=== PATIENT | female | born 1945 | race African-American/Black ===

== ENCOUNTER → 2016-10-28 07:52 | Outpatient (CLI) | payer MEDICARE, OTHER ==
[2014-10-01 13:58] VITALS: BMI 25.2
[~2016-10-28 07:52] MED LIST: BAYER CHEWABLE81 MG PO; ELMIRON100 MG PO; HYDROCODON-ACE1 EAC7 PO; IMDUR30 MG PO; MAG-OX 400 MG400 MG PO; OXYBUTYNIN CHLOR5 MG PO; XARELTO15 MG PO
[2016-10-28 09:33] LABS: BASOPHILS 0.6 % (0-2); EOSINOPHILS 3.6 % (0-7); HEMATOCRIT 35.8 % (36.0-48.0); HEMOGLOBIN 11.8 g/dL (12-16); IMMATURE GRANULOCYTES 0.6 % (0-5); MCH 33.9 pg (26.0-34.0); MCV 102.9 fL (80.0-100.0); MONOCYTES 8.3 % (2-11); NEUTROPHILS 57.9 % (40-80); PLATELET COUNT 152 10x3/uL (130-400); RBC 3.48 10x6/uL (4.00-5.40); RDW 13.7 % (11.5-14.5)
[2016-10-28 09:51] LABS: ALBUMIN 3.4 g/dL (3.4-5.0); ANION GAP 12.8 mmol/L (8-16); BILIRUBIN - TOTAL 0.23 mg/dL (0.2-1.3); CALCIUM 8.6 mg/dL (8.5-10.1); CARBON DIOXIDE 21.7 mmol/L (21.0-32.0); CREATININE - SERUM 1.4 mg/dL (0.6-1.3); POTASSIUM - SERUM 4.5 mmol/L (3.5-5.1); T4 THYROXINE 4.2 ug/dL (4.7-13.3); THYROID STIMULATING HORMONE 0.93 uIU/mL (0.36-3.74)
[2016-10-28 10:26] LABS: GLUCOSE - CSF 62 MG/DL (40-75); PROTEIN - CSF 37 MG/DL (12-60)
[2016-10-28 10:42] LABS: ERYTHROCYTE SEDIMENTATION RATE 11 mm/hr (0-30)
[2016-10-28 10:51] LABS: APPEARANCE - CSF COLORLESS
[2016-10-28 10:52] LABS: RBC - CSF 0 cmm (0-0)
[2016-10-29 07:21] LABS: RAPID PLASMA REAGIN Non Reactive (Non Reactive)
[2016-10-29 12:15] LABS: FOLATE (FOLIC ACID) - SERUM 11.2 ng/mL (>3.0)
[2016-10-29 18:11] LABS: ACID FAST SMEAR Negative (()); AFB SPECIMEN PROCESSING Not Indicated (())
== END | disposition home or self-care (01) ==
LOC: D.RAD 07:52
PROVIDERS: Psychiatry & Neurology Neurology
DX: R53.1 Weakness (principal); M47.12 Other spondylosis with myelopathy, cervical region

== ENCOUNTER → 2016-11-18 08:06 | Outpatient (CLI) | payer MEDICARE, OTHER ==
[2014-10-01 13:58] VITALS: BMI 25.2
--- NOTE | ~2016-11-18 | EMG ---
PATIENT:SINAN MERCADO DATE OF SERVICE: 11/18/16 MEDICAL RECORD: [id number] DATE OF : 43 LOCATION: [facility] ADMISSION DATE: REFERRING PHYSICIAN: SYED SANTIZO MD INTERPRETING PHYSICIAN: SYED SANTIZO MD DATE OF SERVICE: 11/18/2016 DATE OF EXAMINATION: 11/18/2016. ELECTROMYOGRAPHIC DATA: Electromyographic examination is limited to both lower extremities. In the right lower extremity, right peroneal motor stimulation elicits a compound motor action potential with a distal latency of 3.8 milliseconds, peak amplitude of 5 millivolts, and calculated conduction velocity of 44 meters per second. Right tibial motor stimulation elicits a compound motor action potential with a distal latency of 5.7 milliseconds, peak amplitude of 6 millivolts, and calculated conduction velocity of 42 meters per second. Antidromic right sural sensory stimulation elicits a response with a distal latency of 3.6 milliseconds, amplitude of 5 microvolts and calculated conduction velocity of 36 meters per second. The right lower extremity H reflex recording at gastrocsoleus has a latency of 36 milliseconds. In the left lower extremity, left peroneal motor stimulation elicits a compound motor action potential with a distal latency of 3.7 milliseconds, peak amplitude of 10 millivolts and calculated conduction velocity of 40 meters per second. Left tibial motor stimulation elicits a compound motor action potential with a distal latency of 5.1 milliseconds, peak amplitude of 4 millivolts, and calculated conduction velocity of 50 meters per second. Antidromic left sural sensory stimulation elicits no reliable response. The left lower extremity H reflex recording at gastrocsoleus has a latency of 35 milliseconds. Needle electrode examination is limited to both lower extremities as well. Muscles interrogated include the abductor hallucis, extensor digitorum brevis, abductor digiti quinti, tibialis anterior, medial gastrocnemius, vastus lateralis, semitendinosis, and gluteus corbin. There is no abnormality of insertional activity and no abnormal spontaneous activity is seen in all muscles interrogated. Motor unit potential morphology and the pattern of motor unit potential firing and recruitment is normal in all muscles sampled. INTERPRETATION: Electromyographic examination of both lower extremities is indicative of a diffuse disorder of the lower motor neuron in both lower extremities, mild to moderate in degree electrically, consistent with the diagnosis of a sensory motor peripheral polyneuropathy. There is no electrical evidence of a superimposed lumbosacral radiculopathy or other lesion of the lower motor neuron in both lower extremities at this time. There is no evidence of active denervation. TRANSINT:[id number] Voice Confirmation ID: [id number] DOCUMENT ID: [id number] ELECTROMYGRAM/NERVE CONDUCTION [id number] SINAN MERCADO DONALD P MD CC: [id number] DICTATION DATE: 11/18/16907 INTERNATIONAL TRAVEL CONSULTANT: 11/18/16 1018 [facility] [address] [place] [id number]
== END | disposition home or self-care (01) ==
LOC: D.CN 08:00
DX: M47.12 Other spondylosis with myelopathy, cervical region (principal)

== ENCOUNTER 2017-04-14 12:12 | Emergency (ER) | payer MEDICARE, OTHER ==
[2014-10-01 13:58] VITALS: BMI 25.2
[2017-04-14 14:45] LABS: APPEARANCE CLEAR (CLEAR); BILIRUBIN NEGATIVE (NEGATIVE); COLOR YELLOW (YELLOW); GLUCOSE NEGATIVE (NEGATIVE); KETONE NEGATIVE (NEGATIVE); NITRITE NEGATIVE (NEGATIVE); PROTEIN NEGATIVE (NEGATIVE); UROBILINOGEN NORMAL (NORMAL)
[2017-04-14 15:02] LABS: BASOPHILS 0.2 % (0-2); EOSINOPHILS 2.7 % (0-7); HEMATOCRIT 37.9 % (36.0-48.0); HEMOGLOBIN 12.5 g/dL (12-16); IMMATURE GRANULOCYTES 0.3 % (0-5); LYMPHOCYTES 33.8 % (15-50); MCH 33.7 pg (26.0-34.0); MCV 102.2 fL (80.0-100.0); MEAN PLATELET VOLUME 9.3 fL (7.4-10.4); MONOCYTES 7.5 % (2-11); NEUTROPHILS 55.5 % (40-80); PLATELET COUNT 137 10x3/uL (130-400); RBC 3.71 10x6/uL (4.00-5.40); RDW 13.9 % (11.5-14.5)
[2017-04-14 15:16] LABS: ALBUMIN 3.8 g/dL (3.4-5.0); ANION GAP 11.4 mmol/L (8-16); BILIRUBIN - TOTAL 0.49 mg/dL (0.2-1.3); CALCIUM 9.1 mg/dL (8.5-10.1); CARBON DIOXIDE 26.1 mmol/L (21.0-32.0); CREATININE - SERUM 1.4 mg/dL (0.6-1.3); MAGNESIUM - SERUM 1.6 mg/dL (1.8-2.4); POTASSIUM - SERUM 3.5 mmol/L (3.5-5.1); PROTEIN - SERUM 7.2 g/dL (6.4-8.2)
== END 2017-04-14 17:51 | disposition home or self-care (01) ==
LOC: D.ER 12:12
PROVIDERS: Emergency Medicine
DX: R10.9 Unspecified abdominal pain (principal); R19.7 Diarrhea, unspecified; N17.9 Acute kidney failure, unspecified; E83.42 Hypomagnesemia; R00.1 Bradycardia, unspecified

== ENCOUNTER → 2017-05-11 17:01 | Outpatient (CLI) | payer MEDICARE, OTHER ==
[2014-10-01 13:58] VITALS: BMI 25.2
[~2017-05-11 17:01] MED LIST changes: +BENTYL10 MG PO; +CARAFATE1 G PO; +DITROPAN X5 MG/BOTTL PO; +ISOSORBIDE DINI30 MG PO; +KLOR-CON M2020 MEQ PO; +LASIX20 MG PO; +LEXAPRO10 MG PO; +NEURONTIN 300300 MG PO; +NITROSTAT0.4 MG SL; +OMEPRAZOLE40 MG PO; +VENTOLIN HFA18 GM INH; +VITAMIN D5000 UNIT PO; +ZANTAC150 MG PO
[2017-05-11 17:40] LABS: BASOPHILS 0.4 % (0-2); EOSINOPHILS 2.6 % (0-7); HEMATOCRIT 39.9 % (36.0-48.0); HEMOGLOBIN 13.2 g/dL (12-16); IMMATURE GRANULOCYTES 0.6 % (0-5); LYMPHOCYTES 15.4 % (15-50); MCH 34.2 pg (26.0-34.0); MCHC 33.1 g/dL (31.0-37.0); MCV 103.4 fL (80.0-100.0); MEAN PLATELET VOLUME 8.8 fL (7.4-10.4); MONOCYTES 7.6 % (2-11); NEUTROPHILS 73.4 % (40-80); PLATELET COUNT 146 10x3/uL (130-400); RBC 3.86 10x6/uL (4.00-5.40); RDW 14.3 % (11.5-14.5)
[2017-05-11 17:57] LABS: ANION GAP 12.5 mmol/L (8-16); BILIRUBIN - TOTAL 0.52 mg/dL (0.2-1.3); CARBON DIOXIDE 25.9 mmol/L (21.0-32.0); CREATININE - SERUM 1.2 mg/dL (0.6-1.3); POTASSIUM - SERUM 3.4 mmol/L (3.5-5.1); PROTEIN - SERUM 8.1 g/dL (6.4-8.2)
== END | disposition home or self-care (01) ==
LOC: D.RAD 17:01
PROVIDERS: Family Medicine
DX: R05 Cough (principal); R06.02 Shortness of breath; R50.9 Fever, unspecified

== ENCOUNTER → 2017-05-12 15:14 | Outpatient (CLI) | payer MEDICARE, OTHER ==
[2014-10-01 13:58] VITALS: BMI 25.2
== END | disposition home or self-care (01) ==
LOC: D.RAD 14:15
DX: R10.9 Unspecified abdominal pain (principal); R19.7 Diarrhea, unspecified

== ENCOUNTER 2017-05-12 17:32 | Inpatient (IN) | payer MEDICARE, OTHER ==
[~2017-05-12] VITALS: Ht 157.5 cm; Wt 72.3 kg
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
--- NOTE | ~2017-05-12 | PN ---
PATIENT:SINAN MERCADO MEDICAL RECORD: [id number] LOCATION:[facility] ADMISSION DATE: 05/12/17 PROGRESS NOTE DATE OF SERVICE: 05/15/2017 SUBJECTIVE: The patient's case was discussed with staff. She has no new complaint. OBJECTIVE: The patient denies intent to harm herself or others. She is in good behavioral control. She is requesting discharge. ASSESSMENT: No change in diagnoses. PLAN: The patient will be discharged home at her request. Followup will be with her primary care physician. TRANSINT:[id number] Voice Confirmation ID: [id number] DOCUMENT ID: [id number] JOSIE CHO MD at 1809 CC: [id number] DICTATION DATE: 05/15/17 1043 [employer] SALES CONSULTANT: 05/15/17 1125 DIS IN 05/15/17 [address] [id number] [place] [address]
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
--- NOTE | ~2017-05-12 | PN ---
PATIENT:SINAN MERCADO MEDICAL RECORD: [id number] LOCATION:[facility] ADMISSION DATE: 05/12/17 PROGRESS NOTE DATE OF SERVICE: 05/14/2017 SUBJECTIVE: The patient's case was discussed with staff. She has no new complaint. OBJECTIVE: The patient is oriented to person, place, time and situation. Her mood is euthymic. Her affect is appropriate. Thought processes are goal directed. ASSESSMENT: No change in diagnoses. PLAN: The patient has no thoughts of harming herself or others. She has tolerated her initial dose of Lexapro well. She clearly has some very serious stressors at home and in coordination with our perinatal social worker, she is being put in contact with agencies that can assist her. TRANSINT:[id number] Voice Confirmation ID: [id number] DOCUMENT ID: [id number] JOSIE CHO MD at 1921 CC: [id number] DICTATION DATE: 05/14/17 1412 LABOR GANG SUPERVISOR: 05/14/17 1428 ADM IN [place] [id number] [place] [id number]
[~2017-05-12 17:32] MED LIST changes: -BENTYL10 MG PO; -CARAFATE1 G PO; -DITROPAN X5 MG/BOTTL PO; -ISOSORBIDE DINI30 MG PO; -KLOR-CON M2020 MEQ PO; -LASIX20 MG PO; -LEXAPRO10 MG PO; -NEURONTIN 300300 MG PO; -NITROSTAT0.4 MG SL; -OMEPRAZOLE40 MG PO; -VENTOLIN HFA18 GM INH; -VITAMIN D5000 UNIT PO; -ZANTAC150 MG PO
[2017-05-12] MEDS ORDERED: VENTOLIN HFA18 GM INH (20:19)
[2017-05-12] MEDS ORDERED: ELMIRON100 MG PO (20:20)
[2017-05-12] MEDS ORDERED: ISOSORBIDE DINI30 MG PO (20:21)
[2017-05-12] MEDS ORDERED: KLOR-CON M2020 MEQ PO (20:22)
[2017-05-12] MEDS ORDERED: ZANTAC150 MG PO (20:23)
[2017-05-12] MEDS ORDERED: LASIX20 MG PO (20:23)
[2017-05-12] MEDS ORDERED: NITROSTAT0.4 MG SL (20:27)
[2017-05-12] MEDS ORDERED: CARAFATE1 G PO (20:28)
[2017-05-12] MEDS ORDERED: DITROPAN X5 MG/BOTTL PO (20:29)
[2017-05-12] MEDS ORDERED: HYDROCODON-ACE1 EAC7 PO (20:30)
[2017-05-12] MEDS ORDERED: NEURONTIN 300300 MG PO (20:31)
[2017-05-12] MEDS ORDERED: OMEPRAZOLE40 MG PO (20:31)
[2017-05-12] MEDS ORDERED: BENTYL10 MG PO (20:32)
[2017-05-12 20:47] VITALS: BP 127/82; BMI 29.1
[2017-05-13 02:12] VITALS: BP 127/82
[2017-05-13 07:24] LABS: BASOPHILS 0.3 % (0-2); EOSINOPHILS 1.4 % (0-7); HEMATOCRIT 38.6 % (36.0-48.0); HEMOGLOBIN 12.6 g/dL (12-16); IMMATURE GRANULOCYTES 0.3 % (0-5); MCH 33.5 pg (26.0-34.0); MCHC 32.6 g/dL (31.0-37.0); MCV 102.7 fL (80.0-100.0); MEAN PLATELET VOLUME 9.4 fL (7.4-10.4); MONOCYTES 11.5 % (2-11); NEUTROPHILS 56.5 % (40-80); PLATELET COUNT 166 10x3/uL (130-400); RBC 3.76 10x6/uL (4.00-5.40); RDW 14.3 % (11.5-14.5)
[2017-05-13 07:51] LABS: WBC 6.4 10x3/uL (4.8-10.8)
[2017-05-13 07:54] LABS: ALBUMIN 3.6 g/dL (3.4-5.0); ANION GAP 16.4 mmol/L (8-16); BILIRUBIN - TOTAL 0.28 mg/dL (0.2-1.3); CARBON DIOXIDE 20.3 mmol/L (21.0-32.0); CHOL - HDL RATIO 2.1 ratio (2.3-4.1); CREATININE - SERUM 1.2 mg/dL (0.6-1.3); LDL-HDL RATIO 0.9 ratio (1.5-3.5); POTASSIUM - SERUM 3.7 mmol/L (3.5-5.1); PROTEIN - SERUM 7.6 g/dL (6.4-8.2); THYROID STIMULATING HORMONE 0.72 uIU/mL (0.36-3.74)
[2017-05-13 08:08] VITALS: BMI 29.2
[2017-05-13 10:08] VITALS: BP 115/64
[2017-05-13 12:06] LABS: APPEARANCE CLEAR (CLEAR); BILIRUBIN NEGATIVE (NEGATIVE); COLOR STRAW (YELLOW); GLUCOSE NEGATIVE (NEGATIVE); KETONE NEGATIVE (NEGATIVE); NITRITE NEGATIVE (NEGATIVE); PROTEIN NEGATIVE (NEGATIVE); SPECIFIC GRAVITY 1.015 (1.005-1.020); UROBILINOGEN NORMAL (NORMAL)
[2017-05-13 15:40] VITALS: Ht 157.5 cm; Wt 72.3 kg
[2017-05-13 19:16] VITALS: BP 120/70
[2017-05-14 06:16] LABS: RAPID PLASMA REAGIN Non Reactive (Non Reactive)
[2017-05-14 09:47] VITALS: BP 136/59
[2017-05-14 12:18] LABS: VITAMIN D 25 HYDROXY 6.3 ng/mL (30.0-100.0)
[2017-05-14 19:55] VITALS: BP 136/72
[2017-05-15 07:55] VITALS: BP 130/64
[2017-05-15] MEDS ORDERED: LEXAPRO10 MG PO (10:44)
[2017-05-15] MEDS ORDERED: VITAMIN D5000 UNIT PO (10:45)
== END 2017-05-15 13:33 | disposition home or self-care (01) | DRG 885 ==
LOC: D.PSYCH 17:32
PROVIDERS: Psychiatry & Neurology Psychiatry
DX: F33.9 Major depressive disorder, recurrent, unspecified (principal); J44.0 Chronic obstructive pulmonary disease with (acute) lower respiratory infection; F41.8 Other specified anxiety disorders; K29.00 Acute gastritis without bleeding; J20.9 Acute bronchitis, unspecified; D64.9 Anemia, unspecified; N30.10 Interstitial cystitis (chronic) without hematuria; I10 Essential (primary) hypertension; M85.80 Other specified disorders of bone density and structure, unspecified site; K58.9 Irritable bowel syndrome, unspecified; Z86.711 Personal history of pulmonary embolism; G62.9 Polyneuropathy, unspecified; G89.29 Other chronic pain; M54.5 Low back pain; G14 Postpolio syndrome; K57.90 Diverticulosis of intestine, part unspecified, without perforation or abscess without bleeding; E55.9 Vitamin D deficiency, unspecified

== ENCOUNTER 2017-07-06 15:37 | Emergency (ER) | payer MEDICARE, OTHER ==
[2017-05-13 15:40] VITALS: BMI 29.2
[~2017-07-06 15:37] MED LIST changes: +BENTYL10 MG PO; +CARAFATE1 G PO; +DITROPAN X5 MG/BOTTL PO; +ISOSORBIDE DINI30 MG PO; +KLOR-CON M2020 MEQ PO; +LASIX20 MG PO; +LEXAPRO10 MG PO; +NEURONTIN 300300 MG PO; +NITROSTAT0.4 MG SL; +OMEPRAZOLE40 MG PO; +VENTOLIN HFA18 GM INH; +VITAMIN D5000 UNIT PO; +ZANTAC150 MG PO
[2017-07-06 19:43] LABS: BASOPHILS 0.3 % (0-2); HEMATOCRIT 42.2 % (36.0-48.0); HEMOGLOBIN 13.9 g/dL (12-16); IMMATURE GRANULOCYTES 0.7 % (0-5); LYMPHOCYTES 32.3 % (15-50); MCH 34.2 pg (26.0-34.0); MCHC 32.9 g/dL (31.0-37.0); MCV 103.7 fL (80.0-100.0); MEAN PLATELET VOLUME 9.4 fL (7.4-10.4); MONOCYTES 8.9 % (2-11); NEUTROPHILS 55.8 % (40-80); PLATELET COUNT 161 10x3/uL (130-400); RBC 4.07 10x6/uL (4.00-5.40); RDW 14.9 % (11.5-14.5); WBC 6.9 10x3/uL (4.8-10.8)
[2017-07-06 19:59] LABS: ALBUMIN 3.6 g/dL (3.4-5.0); BILIRUBIN - TOTAL 0.76 mg/dL (0.2-1.3); CALCIUM 9.3 mg/dL (8.5-10.1); CARBON DIOXIDE 19.3 mmol/L (21.0-32.0); CREATININE - SERUM 1.2 mg/dL (0.6-1.3); PROTEIN - SERUM 8.8 g/dL (6.4-8.2)
[2017-07-06 20:15] LABS: POTASSIUM - SERUM 4.7 mmol/L (3.5-5.1)
[2017-07-06 20:16] LABS: ANION GAP 21.4 mmol/L (8-16)
[2017-07-06 21:57] LABS: APPEARANCE CLEAR (CLEAR); BILIRUBIN NEGATIVE (NEGATIVE); COLOR YELLOW (YELLOW); GLUCOSE NEGATIVE (NEGATIVE); KETONE NEGATIVE (NEGATIVE); NITRITE NEGATIVE (NEGATIVE); PROTEIN NEGATIVE (NEGATIVE); SPECIFIC GRAVITY 1.015 (1.005-1.020); UROBILINOGEN NORMAL (NORMAL)
== END 2017-07-06 22:51 | disposition home or self-care (01) ==
LOC: D.ER 15:37
PROVIDERS: Emergency Medicine
DX: S39.011A Strain of muscle, fascia and tendon of abdomen, initial encounter (principal); W18.2XXA Fall in (into) shower or empty bathtub, initial encounter; Y93.E1 Activity, personal bathing and showering; Y92.012 Bathroom of single-family (private) house as the place of occurrence of the external cause; F17.200 Nicotine dependence, unspecified, uncomplicated

== ENCOUNTER → 2017-10-04 11:04 | Outpatient (CLI) | payer MEDICARE, OTHER ==
[2017-05-13 15:40] VITALS: BMI 29.2
[2017-10-04 13:02] LABS: BILIRUBIN - DIRECT 0.14 mg/dL (0.00-0.30); BILIRUBIN - INDIRECT 0.43 mg/dL (0.00-1.00); BILIRUBIN - TOTAL 0.57 mg/dL (0.2-1.3); PROTEIN - SERUM 7.4 g/dL (6.4-8.2)
== END | disposition home or self-care (01) ==
LOC: D.LAB 09-22 12:15
PROVIDERS: Internal Medicine Gastroenterology
DX: R79.89 Other specified abnormal findings of blood chemistry (principal); K22.70 Barrett's esophagus without dysplasia; R10.9 Unspecified abdominal pain; R19.7 Diarrhea, unspecified

== ENCOUNTER → 2017-12-10 11:44 | Outpatient (CLI) | payer MEDICARE ==
[2017-05-13 15:40] VITALS: BMI 29.2
[2017-12-10 13:32] LABS: ALBUMIN 3.8 g/dL (3.4-5.0); ANION GAP 13.8 mmol/L (8-16); BILIRUBIN - TOTAL 0.41 mg/dL (0.2-1.3); CREATININE - SERUM 1.3 mg/dL (0.6-1.3); POTASSIUM - SERUM 3.8 mmol/L (3.5-5.1); PROTEIN - SERUM 7.2 g/dL (6.4-8.2)
[2017-12-10 13:36] LABS: BASOPHILS 0.5 % (0-2); EOSINOPHILS 1.7 % (0-7); HEMATOCRIT 36.9 % (36.0-48.0); HEMOGLOBIN 12.2 g/dL (12-16); IMMATURE GRANULOCYTES 0.5 % (0-5); LYMPHOCYTES 31.5 % (15-50); MCH 34.5 pg (26.0-34.0); MCHC 33.1 g/dL (31.0-37.0); MCV 104.2 fL (80.0-100.0); MEAN PLATELET VOLUME 9.5 fL (7.4-10.4); MONOCYTES 6.9 % (2-11); NEUTROPHILS 58.9 % (40-80); PLATELET COUNT 177 10x3/uL (130-400); RBC 3.54 10x6/uL (4.00-5.40); RDW 13.9 % (11.5-14.5)
[2017-12-10 13:41] LABS: APPEARANCE CLEAR (CLEAR); BILIRUBIN NEGATIVE (NEGATIVE); COLOR YELLOW (YELLOW); GLUCOSE NEGATIVE (NEGATIVE); KETONE NEGATIVE (NEGATIVE); NITRITE NEGATIVE (NEGATIVE); PROTEIN NEGATIVE (NEGATIVE); UROBILINOGEN NORMAL (NORMAL)
[2017-12-11 07:25] LABS: VITAMIN D 25 HYDROXY 14.4 ng/mL (30.0-100.0)
[2017-12-15 03:11] LABS: OVA + PARASITE EXAM Final report (())
== END | disposition home or self-care (01) ==
LOC: D.LAB 11:44
PROVIDERS: Family Medicine
DX: R19.7 Diarrhea, unspecified (principal); E55.9 Vitamin D deficiency, unspecified; E87.6 Hypokalemia; E53.8 Deficiency of other specified B group vitamins; R30.0 Dysuria; G30.9 Alzheimer's disease, unspecified; F02.80 Dementia in other diseases classified elsewhere, unspecified severity, without behavioral disturbance, psychotic disturbance, mood disturbance, and anxiety; K58.9 Irritable bowel syndrome, unspecified

== ENCOUNTER → 2018-02-07 12:21 | Outpatient (CLI) | payer MEDICARE ==
[2017-05-13 15:40] VITALS: BMI 29.2
[2018-02-07 12:54] LABS: APPEARANCE CLOUDY (CLEAR); BILIRUBIN NEGATIVE (NEGATIVE); COLOR YELLOW (YELLOW); GLUCOSE NEGATIVE (NEGATIVE); KETONE NEGATIVE (NEGATIVE); NITRITE NEGATIVE (NEGATIVE); PROTEIN NEGATIVE (NEGATIVE); SPECIFIC GRAVITY 1.015 (1.005-1.020); UROBILINOGEN NORMAL (NORMAL)
== END | disposition home or self-care (01) ==
LOC: D.LAB 12:21
PROVIDERS: Family Medicine
DX: R30.0 Dysuria (principal)

== ENCOUNTER → 2018-04-22 08:00 | Outpatient (CLI) | payer MEDICARE ==
[2017-05-13 15:40] VITALS: BMI 29.2
== END | disposition home or self-care (01) ==
LOC: D.MAMMO 08:00
DX: Z12.31 Encounter for screening mammogram for malignant neoplasm of breast (principal)

== ENCOUNTER → 2018-07-04 12:15 | Outpatient (CLI) | payer MEDICARE ==
[2017-05-13 15:40] VITALS: BMI 29.2
[2018-07-04 12:56] LABS: BASOPHILS 0.4 % (0-2); EOSINOPHILS 0.9 % (0-7); HEMATOCRIT 37.3 % (36.0-48.0); HEMOGLOBIN 12.1 g/dL (12-16); IMMATURE GRANULOCYTES 0.2 % (0-5); LYMPHOCYTES 29.2 % (15-50); MCH 34.2 pg (26.0-34.0); MCHC 32.4 g/dL (31.0-37.0); MCV 105.4 fL (80.0-100.0); MEAN PLATELET VOLUME 8.9 fL (7.4-10.4); MONOCYTES 8.1 % (2-11); NEUTROPHILS 61.2 % (40-80); PLATELET COUNT 142 10x3/uL (130-400); RBC 3.54 10x6/uL (4.00-5.40); RDW 13.7 % (11.5-14.5); WBC 5.3 10x3/uL (4.8-10.8)
[2018-07-04 13:31] LABS: ALBUMIN 3.7 g/dL (3.4-5.0); BILIRUBIN - TOTAL 0.77 mg/dL (0.2-1.3); CALCIUM 9.3 mg/dL (8.5-10.1); CARBON DIOXIDE 23.4 mmol/L (21.0-32.0); CREATININE - SERUM 1.3 mg/dL (0.6-1.3); POTASSIUM - SERUM 4.4 mmol/L (3.5-5.1); PROTEIN - SERUM 6.9 g/dL (6.4-8.2)
== END | disposition home or self-care (01) ==
LOC: D.LAB 12:15
PROVIDERS: ATTEND Family Medicine
DX: R19.7 Diarrhea, unspecified (principal); R53.1 Weakness; K50.90 Crohn's disease, unspecified, without complications

== ENCOUNTER → 2018-10-03 12:20 | Outpatient (CLI) | payer MEDICARE ==
[2017-05-13 15:40] VITALS: BMI 29.2
[2018-10-03 13:05] LABS: BASOPHILS 0.5 % (0-2); EOSINOPHILS 1.6 % (0-7); HEMATOCRIT 34.6 % (36.0-48.0); HEMOGLOBIN 11.5 g/dL (12-16); IMMATURE GRANULOCYTES 0.4 % (0-5); LYMPHOCYTES 33.6 % (15-50); MCH 34.7 pg (26.0-34.0); MCHC 33.2 g/dL (31.0-37.0); MCV 104.5 fL (80.0-100.0); MEAN PLATELET VOLUME 9.1 fL (7.4-10.4); MONOCYTES 8.7 % (2-11); NEUTROPHILS 55.2 % (40-80); RBC 3.31 10x6/uL (4.00-5.40); RDW 14.8 % (11.5-14.5); WBC 5.7 10x3/uL (4.8-10.8)
[2018-10-03 13:10] LABS: PLATELET COUNT 172 10x3/uL (130-400)
[2018-10-03 13:24] LABS: APPEARANCE CLEAR (CLEAR); BILIRUBIN NEGATIVE (NEGATIVE); COLOR YELLOW (YELLOW); GLUCOSE NEGATIVE (NEGATIVE); KETONE NEGATIVE (NEGATIVE); NITRITE NEGATIVE (NEGATIVE); PROTEIN NEGATIVE (NEGATIVE); SPECIFIC GRAVITY 1.015 (1.005-1.020); UROBILINOGEN NORMAL (NORMAL)
[2018-10-03 14:00] LABS: ALBUMIN 3.7 g/dL (3.4-5.0); ANION GAP 14.3 mmol/L (8-16); BILIRUBIN - TOTAL 0.64 mg/dL (0.2-1.3); CALCIUM 8.9 mg/dL (8.5-10.1); CARBON DIOXIDE 23.6 mmol/L (21.0-32.0); CREATININE - SERUM 1.6 mg/dL (0.6-1.3); POTASSIUM - SERUM 3.9 mmol/L (3.5-5.1); PROTEIN - SERUM 6.9 g/dL (6.4-8.2); T4 THYROXINE 6.5 ug/dL (4.7-13.3); THYROID STIMULATING HORMONE 0.74 uIU/mL (0.36-3.74)
== END | disposition home or self-care (01) ==
LOC: D.LAB 12:20
PROVIDERS: ATTEND Family Medicine
DX: R30.0 Dysuria (principal); E55.9 Vitamin D deficiency, unspecified; G62.9 Polyneuropathy, unspecified; R60.9 Edema, unspecified

== ENCOUNTER → 2019-03-31 10:02 | Outpatient (CLI) | payer MEDICARE ==
[2017-05-13 15:40] VITALS: BMI 29.2
== END | disposition home or self-care (01) ==
LOC: D.RAD 10:02
PROVIDERS: ATTEND Family Medicine
DX: M54.5 Low back pain (principal); W19.XXXA Unspecified fall, initial encounter

== ENCOUNTER → 2019-10-30 11:45 | Outpatient (CLI) | payer MEDICARE ==
[2017-05-13 15:40] VITALS: BMI 29.2
== END | disposition home or self-care (01) ==
LOC: D.RAD 11:45
PROVIDERS: ATTEND Family Medicine
DX: R06.02 Shortness of breath (principal)

== ENCOUNTER → 2019-11-29 13:18 | Outpatient (CLI) | payer MEDICARE ==
[2017-05-13 15:40] VITALS: BMI 29.2
[2019-11-29 14:13] LABS: HEMATOCRIT 39.3 % (36.0-48.0); MCH 34.1 pg (26.0-34.0); MCHC 33.1 g/dL (31.0-37.0); MCV 103.1 fL (80.0-100.0); MEAN PLATELET VOLUME 9.4 fL (7.4-10.4); RBC 3.81 10x6/uL (4.00-5.40); RDW 14.2 % (11.5-14.5); WBC 6.8 10x3/uL (4.8-10.8)
[2019-11-29 14:16] LABS: PLATELET COUNT 134 10x3/uL (130-400)
[2019-11-29 15:06] LABS: ALBUMIN 3.7 g/dL (3.4-5.0); ANION GAP 14.4 mmol/L (8-16); BILIRUBIN - TOTAL 0.38 mg/dL (0.2-1.3); CALCIUM 8.9 mg/dL (8.5-10.1); CARBON DIOXIDE 22.5 mmol/L (21.0-32.0); CHOL - HDL RATIO 2.2 ratio (2.3-4.1); LDL-HDL RATIO 0.9 ratio (1.5-3.5); POTASSIUM - SERUM 3.9 mmol/L (3.5-5.1); PROTEIN - SERUM 7.5 g/dL (6.4-8.2)
== END | disposition home or self-care (01) ==
LOC: D.LAB 13:18
PROVIDERS: ATTEND Family Medicine
DX: Z00.00 Encounter for general adult medical examination without abnormal findings (principal); J44.9 Chronic obstructive pulmonary disease, unspecified; I10 Essential (primary) hypertension; E55.9 Vitamin D deficiency, unspecified; I27.82 Chronic pulmonary embolism

== ENCOUNTER → 2019-12-07 09:18 | Outpatient (CLI) | payer MEDICARE ==
[2017-05-13 15:40] VITALS: BMI 29.2
== END | disposition home or self-care (01) ==
LOC: D.RAD 09:18
PROVIDERS: ATTEND Internal Medicine Gastroenterology
DX: R13.12 Dysphagia, oropharyngeal phase (principal); R10.13 Epigastric pain; R12 Heartburn